=== PATIENT | male | born 1945 | race Caucasian/White ===

== ENCOUNTER 2018-10-29 16:59 | Emergency (ER) | payer MEDICARE ==
--- NOTE | 2018-10-29 19:56 | ULT ---
LEFT LOWER EXTREMITY VENOUS DOPPLER 10/29/18 PROVIDED CLINICAL HISTORY: Left leg edema. FINDINGS: Bradshaw scale and color doppler sonography with spectral analysis was performed of the left common femor al, femoral, popliteal, posterior tibial, greater saphenous and profunda femoral veins, demonstrating a normal sonographic appearance to each. IMPRESSION: No sonographic evidence of for left lower extremity deep venous thrombosis. POS: LUPE
== END 2018-10-29 19:08 | disposition home or self-care (01) ==
LOC: SCSER 16:59
DX: M79.89 Other specified soft tissue disorders (principal); I10 Essential (primary) hypertension; E78.5 Hyperlipidemia, unspecified; Z79.82 Long term (current) use of aspirin; Z79.899 Other long term (current) drug therapy

== ENCOUNTER 2019-05-31 11:24 | Observation (INO) | payer MEDICARE ==
[2019-05-31 11:59] LABS: #Basophils 0.1 thou/uL (0.0-0.2); #Eosinphils 0.1 thou/uL (0.0-0.7); #Lymphocytes 1.4 thou/uL (1.20-3.40); #Monocytes 0.8 thou/uL (0.11-0.59); #Neutrophils 3.9 thou/uL (1.40-6.50); %Basophils 1.6 % (0.0-1.0); %Eosinophils 1.2 % (0.0-10.0); %Lymphocytes 22.6 % (21.0-51.0); %Monocytes 12.2 % (0.0-10.0); %Neutrophils 62.4 % (42.0-75.0); Hemoglobin 15.3 g/dL (14.0-18.0); Mean Corpuscular HGB CONC 33.6 g/dL (32.0-36.0); Mean Corpuscular Hemoglobin 30.7 pg (27.0-31.0); Mean Corpuscular Volume 91.3 fL (78.0-98.0); Mean Platelet Volume 7.4 fL (7.4-10.4); Platelet Count 269 thou/uL (130-400); RBC Distribution Width 11.5 % (11.5-14.5); Red Blood Cell (RBC) Count 4.98 mill/uL (4.70-6.10); White Blood Cell (WBC) Count 6.2 thou/uL (4.8-10.8)
[2019-05-31] MEDS ORDERED: Aspirin Chewable 81 MG TAB ONE (12:04)
[2019-05-31] MEDS ORDERED: Nitroglycerin 2% Ointment 1 INCH/1 GM Packet ONE (12:04)
[2019-05-31 12:35] LABS: ALT (SGPT) 23 U/L (8-55); AST (SGOT) 25 U/L (5-34); Albumin 3.7 g/dL (3.4-4.8); Alkaline Phosphatase 102 U/L (40-150); Anion Gap 13 mmol/L (10-20); BUN (Urea Nitrogen) 18 mg/dL (8.4-25.7); Bilirubin, Total 0.5 mg/dL (0.2-1.2); CK (CPK) 231 U/L (30-200); Calc. Creatinine Clearance 0 mL/min (70-130); Calcium 8.8 mg/dL (7.8-10.44); Carbon Dioxide 25 mmol/L (23-31); Chloride 99 mmol/L (98-107); Estimated GFR-MDRD 65; Globulin 2.6 g/dL (2.4-3.5); Glucose 90 mg/dL (83-110); Lipase 28 U/L (8-78); Potassium 4.1 mmol/L (3.5-5.1); Protein, Total 6.3 g/dL (5.8-8.1); Sodium 133 mmol/L (136-145)
--- NOTE | 2019-05-31 12:56 | RAD ---
PORTABLE AP CHEST XRAY: HISTORY: Sharp pain in mid chest with radiation of pain to the left side. Pressure sensation. Symptoms have now resolved. COMPARISON: 03/03/2015. FINDINGS: The cardiac silhouette and pulmonary vasculature are within normal limits for the portable technique of the study. The lungs are clear. There has been no interval change from the prior exam. IMPRESSION: No acute cardiopulmonary process. POS: GABY
[2019-05-31 15:18] VITALS: BMI 31.8
[2019-05-31] MEDS: Nitroglycerin 2% Ointment 1 INCH/1 GM Packet TOP SCH ×2 (19:01→21:22)
[2019-05-31] MEDS ORDERED: Ondansetron PF 4 MG/2 ML Vial IVP PRN (20:31)
[2019-05-31] MEDS ORDERED: Acetaminophen 325 MG TAB PO PRN (20:31)
[2019-05-31] MEDS ORDERED: Ondansetron ODT 4 MG TAB PO PRN (20:31)
[2019-05-31] MEDS ORDERED: Atorvastatin Calcium 40 MG TAB PO SCH (21:00)
[2019-05-31] MEDS: Famotidine 20 MG TAB PO SCH (21:10)
--- NOTE | 2019-05-31 22:54 | HP ---
PRIMARY CARE PHYSICIAN: Manuel Palumbo MD CHIEF COMPLAINT: Chest pain. HISTORY OF PRESENT ILLNESS: Mr. Guy is a pleasant 73-year-old man with past medical history of hypertension, hyperlipidemia, hypothyroidism, who had presented to [facility] ER earlier today after he experienced about 30 minutes of left-sided and midsternal chest pain, he states that this pain started when he was at the gas station pumping gas. He had also noticed some mild chest tightness and shortness of breath during this time as well. However, denied any fever, chills, headache, blurred vision, dizziness, palpitations, abdominal pain, or any change in stool over the last few days. He had also denied any swelling down the upper or lower extremities or any weakness that he has noticed. He states that back in October of this year, he was diagnosed with pericarditis, which he had developed a mild pericardial effusion. However, this had resolved and he states that he followed up with a smart grid engineer in [place] and was cleared, he has since been pain free and had not noticed any changes until now. His serial troponins were found to be negative x3. He had no EKG changes. He was given 243 mg of aspirin and he took 81 mg at home prior to arriving. He was also treated with 0.5 inch of nitroglycerin paste. The patient was later transferred to [facility] for further workup and evaluation of his chest pain. REVIEW OF SYSTEMS: All other systems reviewed and found to be negative unless mentioned in the HPI. PAST MEDICAL HISTORY: Hypertension, hyperlipidemia, hypothyroidism, and pericardial effusion in October 2018 along with skin cancer. PAST SURGICAL HISTORY: Appendectomy and 2 back surgeries. PSYCHIATRIC HISTORY: None. SOCIAL HISTORY: The patient denies alcohol, tobacco, or illicit drug use. KNOWN ALLERGIES: Carisoprodol, etodolac and methocarbamol. CURRENT HOME MEDICATIONS: 1. Aspirin 81 mg daily. 2. Levothyroxine 100 mcg p.o. daily. 3. Atorvastatin 40 mg oral daily. 4. Hydrochlorothiazide 25 mg oral daily. 5. Lisinopril 40 mg oral daily. 6. Vitamin D3. 7. Potassium chloride 10 mEq oral daily. PHYSICAL EXAMINATION: VITAL SIGNS: BP 158/97, pulse 73, respirations 16, temperature 98.3 degrees, O2 saturation 97% on room air. GENERAL: The patient is awake, alert, and oriented x3, currently lying comfortably in bed and in no acute distress. HEENT: Atraumatic, normocephalic. Pupils are round and reactive to light. Extraocular muscles intact. Moist mucous membranes noted. NECK: Soft, supple. Trachea midline. CARDIOVASCULAR: Positive S1 and S2. Regular rate and rhythm. No murmur auscultated. RESPIRATORY: Clear to auscultation bilaterally. No wheezes, rales, or rhonchi. ABDOMEN: Soft, nontender. Bowel sounds present. MUSCULOSKELETAL: Strength 5+ bilaterally upper and lower extremities. Moves all extremities equal. No edema noted. NEUROLOGIC: Cranial nerves 2 through 12 grossly intact. No focal deficits noted. Speech intact and normal. Gait not assessed. SKIN: Warm, dry, and intact. No rashes. No ulceration noted. PSYCHIATRIC: Good mood and affect. LABORATORY DATA: WBC 6.2, RBC 4.98, hemoglobin 15.3, platelet 269. Sodium 133, potassium 4.1, anion gap 13, BUN 18, creatinine 1.11, estimated GFR 65, glucose 90, CK 231. Troponin less than 0.010 x3. Lipase 28. DIAGNOSTIC IMAGING: Portable chest x-ray showed no acute cardiopulmonary process. ASSESSMENT AND PLAN: 1. Chest pain, the patient is currently asymptomatic at this time. Symptoms lasted 30 minutes prior to arriving and he has since been chest pain free. Serial troponins were found to be negative x3 with no EKG changes. The patient will undergo cardiac stress test in the morning to rule out acute coronary syndrome. 2. Hypertension, currently stable. Continue home regimen and monitor blood pressure and other vital signs closely. 3. Hyperlipidemia. Continue home statin. 4. Hypothyroidism. Continue home regimen with levothyroxine and check a TSH. 5. Deep venous thrombosis and gastrointestinal prophylaxis. 6. Code status, full code. 7. Surrogate decision maker is his spouse, Christine. DISPOSITION: Pending further workup and clinical findings. If his stress test is negative tomorrow, he will likely be discharged home. Job ID: [id number]
[2019-06-01 05:35] LABS: #Basophils 0.1 thou/uL (0.0-0.2); #Eosinphils 0.1 thou/uL (0.0-0.7); #Lymphocytes 1.7 thou/uL (1.20-3.40); #Monocytes 0.7 thou/uL (0.11-0.59); #Neutrophils 4.5 thou/uL (1.40-6.50); %Eosinophils 1.6 % (0.0-10.0); %Lymphocytes 23.7 % (21.0-51.0); %Monocytes 9.8 % (0.0-10.0); %Neutrophils 63.8 % (42.0-75.0); Hemoglobin 14.1 g/dL (14.0-18.0); Mean Corpuscular HGB CONC 33.2 g/dL (32.0-36.0); Mean Corpuscular Hemoglobin 29.7 pg (27.0-31.0); Mean Corpuscular Volume 89.7 fL (78.0-98.0); Mean Platelet Volume 7.2 fL (7.4-10.4); Platelet Count 239 thou/uL (130-400); RBC Distribution Width 11.5 % (11.5-14.5); Red Blood Cell (RBC) Count 4.75 mill/uL (4.70-6.10); White Blood Cell (WBC) Count 7.1 thou/uL (4.8-10.8)
[2019-06-01 05:57] LABS: Anion Gap 10 mmol/L (10-20); BUN (Urea Nitrogen) 17 mg/dL (8.4-25.7); Calc. Creatinine Clearance 86 mL/min (70-130); Calcium 8.8 mg/dL (7.8-10.44); Carbon Dioxide 27 mmol/L (23-31); Cardiac Risk 3.4 (Less than 4.5); Chloride 96 mmol/L (98-107); Cholesterol 154 mg/dl (< 200 Desired); Estimated GFR-MDRD 66; Glucose 94 mg/dL (83-110); HDL Cholesterol 45 mg/dL (>60 Neg Risk); LDL Cholesterol, Calculated 79 mg/dL; Potassium 4.2 mmol/L (3.5-5.1); Sodium 129 mmol/L (136-145); Triglycerides 151 mg/dL (Less than 150)
[2019-06-01] MEDS ORDERED: Levothyroxine Sodium 100 MCG TAB PO SCH (06:00)
[2019-06-01] MEDS ORDERED: Potassium Chloride 10 MEQ TAB PO SCH (09:00)
[2019-06-01] MEDS ORDERED: Hydrochlorothiazide 25 MG TAB PO SCH (09:00)
[2019-06-01] MEDS ORDERED: Aspirin 81 mg Enteric Coated Tablet PO SCH (09:00)
[2019-06-01] MEDS ORDERED: Lisinopril 20 MG TAB PO SCH (09:00)
[2019-06-01] MEDS ORDERED: Enoxaparin Sodium 40 MG/0.4 ML SYRINGE SC SCH (09:00)
[2019-06-01 12:07] VITALS: BP 159/72; TEMP 97.9
[2019-06-01] MEDS: Famotidine 20 MG TAB PO SCH (13:39)
--- NOTE | 2019-06-01 13:44 | NM ---
CARDIAC SPECT: HISTORY: A 73-year-old male with chest pain, hypertension, and dyslipidemia. TECHNIQUE: A myocardial perfusion scan was performed using the single isotope one day protocol with technetium 9 9m sestamibi, and 11 millicuries were injected intravenously for the rest exam, followed by 33 millic uries for the stress study. Pharmacologic stress with adenosine was monitored and interpreted by Dr. Prieto. FINDINGS: A homogeneous tracer distribution is seen in the myocardial segments on stress and rest images withou t fixed or reversible defects. Gated SPECT LVEF 64%. Wall motion exam normal. IMPRESSION: Normal myocardial perfusion scan. POS: TPC
[2019-06-01] MEDS ORDERED: ADENOSINE 60 MG/20 ML VIAL ONE (14:06)
--- NOTE | 2019-06-06 15:39 | EKG ---
Test Reason : Blood Pressure : / mmHG Vent. Rate : 063 BPM Atrial Rate : 063 BPM P-R Int : 182 ms QRS Dur : 100 ms QT Int : 374 ms P-R-T Axes : 033 -59 021 degrees QTc Int : 382 ms Normal sinus rhythm Left axis deviation Incomplete right bundle branch block Abnormal ECG Confirmed by JOYCE MAYS ([id number]), editor city LAURA REID ([id number]) on 06/06/2019 3:39:19 PM Referred By: Confirmed By:JOYCE MAYS
== END 2019-06-01 15:58 | disposition home or self-care (01) ==
LOC: SCSER 11:24 → 2SW 15:03
PROVIDERS: ADMIT Internal Medicine; ATTEND Internal Medicine
DX: R07.2 Precordial pain (principal); I10 Essential (primary) hypertension; E03.9 Hypothyroidism, unspecified; E78.5 Hyperlipidemia, unspecified; Z88.6 Allergy status to analgesic agent; Z88.8 Allergy status to other drugs, medicaments and biological substances; Z79.82 Long term (current) use of aspirin; Z79.899 Other long term (current) drug therapy
CPT/HCPCS: 71045; 78452; 80048; 80053; 80061; 82550; 83690; 84484 ×2; 85025 ×2; 93005; 93017; 94760; 99285; A9500; G0378 ×2; 36415; J0153